=== PATIENT | female | born 1965 | race Caucasian/White ===

== ENCOUNTER 2023-04-17 14:37 | Outpatient (AMB) | payer OTHER, SELFPAY ==
--- NOTE | 2023-04-17 14:24 | MHC.PC.OV ---
Intake Visit Reasons: med follow up Medical Liaison Required: No Accompanied by: Self / Same As Patient Allergies ibuprofen [From MOTRIN] Allergy (Unknown, Verified 04/17/23 14:40) UPSET STOMACH, Nausea Medication List - Last Reconciled 04/17/23 by Arron Oliveros PA-C albuterol sulfate 90 mcg/actuation 2 puffs PO Q4-6H PRN alprazolam 0.5 mg PO BID 7 days atorvastatin 20 mg PO DAILY baclofen 10 mg PO BEDTIME gabapentin 300 mg PO BID lamotrigine 100 mg PO DAILY miscellaneous medical supply 1 ea miscellaneous DAILY 99 days omeprazole 20 mg PO DAILY sertraline (Zoloft) 200 mg PO DAILY tramadol 50 mg PO BID PRN 30 days trazodone 150 mg PO BEDTIME 30 days Tobacco use date assessed: 04/17/23 Dental Screening Dental Screen Date: 04/17/23 Did you have a dental visit in the last 12 months?: Yes Did you have a dental problem in the last 6 months where you did not have access to dental care?: No Was dental information given to patient?: Patient has dentist HPI med follow up HPI Details Patient is a 58 year-old female being evaluated today via telephone only.? Patient has a past medical history significant for generalized anxiety disorder, insomnia, moderate to severe scoliosis of thoracic lumbar spine, ART, major depressive disorder. Unfortunately was not able to get fasting labs done before today's visit. She reports she has gained a lot of weight due to being negative secondary to her thoracic and lumbar spine issue. She has severe scoliosis and has been having to use a walker for ambulatory assistance. She is interested in increasing her dose of gabapentin Obstructive sleep apnea: Is followed by the specialist and her recent CPAP settings were adjusted. She reports her headaches have returned chronic headaches --> Interval history : Patient recently seen her eye doctor was found to have papilledema.? She was referred urgently to Neurology whom diagnosed her with ?? pseudotumor cerebri and started her on acetazolamide which did not improve her symptoms. Now seeing new neurologist? 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 .. Generalized anxiety disorder, depression: Has agoraphobic tendencies.? Patient now followed by a mental health provider whom is prescribing her mental health medications. Now on lamotrigineand and topamax , zoloft.? Still uses alprazolam any very limited p.r.n. basis for anxious symptoms. She feels her mental health is fairly stable now. [facility] Medical History Brain stem lesion Gastric pain Surgical History No pertinent past surgical history Family History Father Diabetes Hypertension Mother No problems noted. Social History Housing: House Alcohol intake: never Patient Tobacco Use Status: Former Tobacco user Quit Date: 05/12/21 Tobacco use type: Cigarette e-Cigarette/Vaping Use: Never Used Second Hand Smoke Exposure: No service: No Current occupational status: disabled Cognitive needs: Yes (Pt has a walker at home.) Hearing needs: No Vision needs: Yes Questionnaire PHQ-9 Over the last 2 weeks, how often have you been bothered by any of the following problems? 1. Little interest or pleasure in doing things: more than half the days 2. Feeling down, depressed, or hopeless: more than half the days 3. Trouble falling or staying asleep, or sleeping too much: nearly every day 4. Feeling tired or having little energy: nearly every day 5. Poor appetite or overeating: nearly every day 6. Feeling bad about yourself - or that you are a failure or have let yourself or your family down: nearly every day 7. Trouble concentrating on things, such as reading the newspaper or watching television: nearly every day 8. Moving or speaking so slowly that other people could have noticed. Or the opposite - being so fidgety or restless that you have been moving around a lot more than usual: nearly every day 9. Thoughts that you would be better off or of hurting yourself in some way: several days Total score: 23 Depression Screening Interpretation: Positive Depression Screening Follow-up: Existing condition Depression Screening Done: Yes 75522 - PHQ-9 Billing: Yes Source: Developed by Cha Beckham.W. Rodriguez, Braydon Ellis and colleagues, with an educational lucy from [employer]. Thrive Questionnaire Date Thrive assessed: 04/17/23 I am a: Patient What is your living situation today?: I have a steady place to live Within the past 12 months, did the food you bought not last and you didn't have the money to get more?: Never true Within the past 12 months, did you worry whether your food would run out before you got money to buy more?: Never true Do you have trouble paying for medicines?: No Do you have trouble getting transportation to medical appointments?: No Do you have trouble paying your heating and electricity bill?: No Do you have trouble taking care of your child, family member or friend?: No Do you have trouble with day-to-day activities such as bathing, preparing meals, shopping, managing finances, etc.?: No Are you currently unemployed and looking for a job?: No Are you interested in more education?: No Please select the resources that you would like help with: None Currently or been in a relationship where the following occur: no concerns reported THRIVE Score: 0 AUDIT C Alcohol Use Questionnaire (AUDIT-C) 1. How often do you have a drink containing alcohol?: Never 3. How often do you have six or more drinks on one occasion?: Never Total Score: 0 VALERI-7 AMB Questionnaire VALERI-7 Date VALERI - 7 assessed: 04/17/23 Feeling nervous, anxious, or on edge: 3 = Nearly every day Not being able to stop or control worryin = Nearly every day Worrying too much about different things: 3 = Nearly every day Trouble relaxin = Nearly every day Being so restless that it is hard to sit still: 2 = More than half the days Becoming easily annoyed or irritable: 2 = More than half the days Feeling afraid as if something awful might happen: 2 = More than half the days Total VALERI-7 score (0-4 normal; 5-9 mild; 10-14 moderate; 15-21 severe): 18 Source: Developed by Drs. Jose Alejandro Mosqueda, Cha Frias, Braydon Ellis and colleagues, with an educational lucy from [employer]. VALERI-7 Assessment Billing VALERI-7 Assessment Tool: VALERI-7 Assessment 69817 Review of Systems Const Denies headache(s) Eyes Denies loss of vision ENT Denies vertigo, Denies dizziness, Denies headache(s) and Denies sore throat Card Denies chest pain, Denies leg edema and Denies lightheadedness Resp Denies cough, Denies hemoptysis and Denies wheezing GI Denies abdominal pain, Denies melena, Denies constipation, Denies diarrhea and Denies vomiting Denies urinary frequency, Denies dysuria and Denies urinary urgency Musc Reports back pain, Denies arthralgias, Denies joint swelling, Denies numbness and Denies tingling Neuro Denies behavioral changes, Denies vertigo, Denies dizziness, Denies headache(s), Denies loss of vision, Denies memory loss, Denies numbness and Denies tingling Psych Denies anxiety, Denies behavioral changes, Denies depression, Denies memory loss and Denies panic attacks Alcon/Lymph Denies easy bleeding and Denies easy bruising Aller/Immun Denies wheezing Physical exam (Primary Care) Tobacco/Smoking Status: Tobacco use Status Tobacco use date assessed 04/17/23 04/17/23 14:36 Patient Tobacco Use Status Former Tobacco user 04/17/23 14:24 Tobacco use type Cigarette 04/17/23 14:24 e-Cigarette/Vaping Use Never Used 04/17/23 14:24 PHQ-9: PHQ-9 Score PHQ-9: Total score 23 04/17/23 14:36 Depression Screening Interpretation: Positive Depression Screening Follow-up: Existing condition Thrive Assessment: Date of Thrive Assessment Date Thrive assessed 04/17/23 04/17/23 14:36 Currently or been in a relationship where the following occur: no concerns reported Telehealth Telehealth Location of provider rendering services: practice address Location of patient: address on file Patient Identification confirmed using: Name, : Yes Telehealth method: voice only Patient verbally consented to treatment: Yes Patient verbally consented to billing insurance company: Yes Patient informed of any privacy concerns related to visit: Yes Minutes spent on Phone/Video with Pt.: 11 Assessment and Plan Assessment & Plan (1) VALERI (generalized anxiety disorder): Code(s): F41.1 - Generalized anxiety disorder Plan: Patient is followed by mental health therapist at this time. She continues with the use alprazolam on a p.r.n. basis. Has been started on mood stabilizer as well for possible mood disorder. (2) Scoliosis: Code(s): M41.9 - Scoliosis, unspecified Qualifiers: Scoliosis type: idiopathic Idiopathic scoliosis type: other Spinal region: thoracic Qualified Code(s): M41.24 - Other idiopathic scoliosis, thoracic region Plan: Patient does have fairly advanced scoliosis to which she uses tramadol, lidocaine patch and acetaminophen for. As per HPI her back pain has become more debilitating. She reports she has been having to use a walker for ambulatory assistance. (3) Sleep apnea: Code(s): G47.30 - Sleep apnea, unspecified Qualifiers: Sleep apnea type: obstructive Qualified Code(s): G47.33 - Obstructive sleep apnea (adult) (pediatric) Plan: Has been started on CPAP machine and reports her headaches have drastically improved. 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 Most likely reason for papilledema was her uncontrolled obstructive sleep apnea. (5) HLD (hyperlipidemia): Code(s): E78.5 - Hyperlipidemia, unspecified Qualifiers: Hyperlipidemia type: pure hypertriglyceridemia Qualified Code(s): E78.1 - Pure hyperglyceridemia Plan: Patient continues on statin therapy. Has yet to get her fasting labs done for several years due to her extreme anxiety. She promises to do her labs in the next few weeks. Goal LDL to be below 130 Medications: New gabapentin 600 mg PO BID 30 days 60 tabs 3RF M41.9 - Scoliosis, unspecified Refilled atorvastatin 20 mg PO DAILY 90 tabs 1RF E78.1 - Pure hyperglyceridemia tramadol 50 mg PO BID 30 days PRN 60 tabs 3RF pain M41.24 - Other idiopathic scoliosis, thoracic region albuterol sulfate 90 mcg/actuation 2 puffs PO Q4-6H PRN 8.5 ea 3RF for wheezing Discontinued gabapentin Discontinued Reason: Doctor's Order 300 mg PO BID 60 caps 6RF Coding Level of Care Code Tele Est Pt Level 4 (22255) Diagnoses VALERI (generalized anxiety disorder) F41.1 Other idiopathic scoliosis, thoracic region M41.24 Scoliosis type: idiopathic Idiopathic scoliosis type: other Spinal region: thoracic Obstructive sleep apnea syndrome G47.33 Sleep apnea type: obstructive Brain stem lesion G93.9 Pure hypertriglyceridemia E78.1 Hyperlipidemia type: pure hypertriglyceridemia Additional Codes VALERI-7 Assessment Billing - VALERI-7 Assessment Tool: VALERI-7 Assessment 95395 ([id number])
== END 2023-04-17 15:47 | disposition home or self-care (01) ==
LOC: HO.HMGH 14:37
PROVIDERS: PCP Physician Assistant; Visit Provider Physician Assistant
DX: M41.24 Other idiopathic scoliosis, thoracic region (principal); G47.33 Obstructive sleep apnea (adult) (pediatric); G93.9 Disorder of brain, unspecified; E78.1 Pure hyperglyceridemia
CPT/HCPCS: 99442

== ENCOUNTER 2023-08-14 11:44 | Outpatient (REF) | payer OTHER, SELFPAY ==
--- NOTE | ~2023-08-14 | XR_ITS ---
EXAMINATION: XR THORACIC SPINE CLINICAL INFORMATION: Idiopathic thoracic scoliosis. COMPARISON: Thoracic spine radiographs dated 11/20/2018. TECHNIQUE: Frontal, lateral and swimmer's views of the thoracic spine were obtained. FINDINGS: There is bony mineralization. There are stable very mild T6 and T7 upper endplate compression fractures. There is a mild thoracolumbar levoscoliosis. At C5-C6, there is moderate disc space narrowing. There is disc space narrowing extending from T6-T7 through T8-T9. The remaining disc spaces are relatively well-maintained. No acute fracture or spondylolisthesis is seen. There is anterior endplate arthropathy, most pronounced at T8-T9. The posterior elements are intact. The paravertebral soft tissues are unremarkable. XR/XR lumbar spine 2-3V IMPRESSION: 1. There are stable very mild T6 and T7 upper endplate compression fractures. 2. There is a mild thoracolumbar levoscoliosis. 3. There is moderate degenerative disc disease at C5-C6 and extending from T6-T7 through T8-T9. EXAMINATION: XR LUMBOSACRAL SPINE CLINICAL INFORMATION: Idiopathic thoracic scoliosis. COMPARISON: Radiographs dated 11/20/2018. TECHNIQUE: AP and lateral views of the lumbar spine and lateral view of the lumbosacral junction. FINDINGS: There is bony demineralization. There is a moderate thoracolumbar levoscoliosis. Vertebral body heights are normal. The lumbar disc spaces are well-maintained. No acute fracture or spondylolisthesis is seen. There is multi-level anterior endplate arthropathy. The posterior elements are intact. The paravertebral soft tissues are unremarkable. There are pelvic phleboliths. There are right upper quadrant surgical clips. IMPRESSION: 1. There is a moderate thoracolumbar levoscoliosis. 2. The lumbar disc spaces are well-maintained. 3. There is multi-level mild lumbar endplate arthropathy.
--- NOTE | ~2023-08-14 | XR_ITS ---
EXAMINATION: XR THORACIC SPINE CLINICAL INFORMATION: Idiopathic thoracic scoliosis. COMPARISON: Thoracic spine radiographs dated 11/20/2018. TECHNIQUE: Frontal, lateral and swimmer's views of the thoracic spine were obtained. FINDINGS: There is bony mineralization. There are stable very mild T6 and T7 upper endplate compression fractures. There is a mild thoracolumbar levoscoliosis. At C5-C6, there is moderate disc space narrowing. There is disc space narrowing extending from T6-T7 through T8-T9. The remaining disc spaces are relatively well-maintained. No acute fracture or spondylolisthesis is seen. There is anterior endplate arthropathy, most pronounced at T8-T9. The posterior elements are intact. The paravertebral soft tissues are unremarkable. XR/XR thoracic spine 3V IMPRESSION: 1. There are stable very mild T6 and T7 upper endplate compression fractures. 2. There is a mild thoracolumbar levoscoliosis. 3. There is moderate degenerative disc disease at C5-C6 and extending from T6-T7 through T8-T9. EXAMINATION: XR LUMBOSACRAL SPINE CLINICAL INFORMATION: Idiopathic thoracic scoliosis. COMPARISON: Radiographs dated 11/20/2018. TECHNIQUE: AP and lateral views of the lumbar spine and lateral view of the lumbosacral junction. FINDINGS: There is bony demineralization. There is a moderate thoracolumbar levoscoliosis. Vertebral body heights are normal. The lumbar disc spaces are well-maintained. No acute fracture or spondylolisthesis is seen. There is multi-level anterior endplate arthropathy. The posterior elements are intact. The paravertebral soft tissues are unremarkable. There are pelvic phleboliths. There are right upper quadrant surgical clips. IMPRESSION: 1. There is a moderate thoracolumbar levoscoliosis. 2. The lumbar disc spaces are well-maintained. 3. There is multi-level mild lumbar endplate arthropathy.
--- NOTE | ~2023-08-14 | XR_ITS ---
EXAMINATION: XR HIP, RIGHT CLINICAL INFORMATION: Right hip pain. COMPARISON: None available. TECHNIQUE: AP and frog-leg lateral views of the right hip are submitted, together with a frontal view of the pelvis. FINDINGS: No fracture. Alignment is anatomic. Hip joint space is maintained. Soft tissues are unremarkable. There are multiple pelvic phleboliths. XR/XR hip RT min 2V IMPRESSION: Normal right hip.
[2023-08-14 12:40] LABS: Hematocrit 44.7 % (37.0-47.0); Hemoglobin 14.2 g/dl (12.0-16.0); Mean Corpuscular HGB Conc 31.8 g/dl (31.0-35.0); Mean Corpuscular Hemoglobin 30.5 pg (27.0-33.0); Mean Corpuscular Volume 95.9 fL (80.0-98.0); Mean Platelet Volume 9.7 fL (9.4-12.3); Platelet Count 366 X10*3/uL (160-400); Red Blood Count 4.66 X10*6/uL (4.20-5.50); Red Cell Distribution Width 13.2 % (11.0-16.0); White Blood Count 9.2 X10*3/uL (4.8-10.8)
[2023-08-14 13:40] LABS: Alanine Aminotransferase 21 U/L (0-31); Albumin Level 4.1 g/dL (3.5-5.0); Alkaline Phosphatase 79 U/L (39-117); Anion Gap 14 (12-20); Aspartate Amino Transferase 21 U/L (5-31); Bilirubin Total 0.3 mg/dL (0.0-1.0); Blood Urea Nitrogen 10 mg/dL (9-16); Calcium 9.3 mg/dL (8.4-10.2); Carbon Dioxide 30 mmol/L (22-29); Chloride 106 mmol/L (96-108); Cholesterol 143 mg/dL (<200); Estimated Glomerular Filt Rate > 60; Glucose Fasting 131 mg/dL (60-99); HDL Cholesterol 54 mg/dL (>40); LDL Cholesterol Calculated 68 mg/dL (<100); Potassium 4.4 mmol/L (3.3-5.1); Sodium 146 mmol/L (135-145); Total Protein 6.9 g/dL (6.5-8.0); Triglycerides 107 mg/dL (<150)
== END 2023-08-14 11:45 | disposition home or self-care (01) ==
LOC: HO.XRAY 11:44
PROVIDERS: PCP Physician Assistant; Visit Provider Physician Assistant
DX: K21.9 Gastro-esophageal reflux disease without esophagitis (principal); E78.1 Pure hyperglyceridemia; M25.551 Pain in right hip; M41.24 Other idiopathic scoliosis, thoracic region; M51.16 Intervertebral disc disorders with radiculopathy, lumbar region
CPT/HCPCS: 36415; 72072; 72100; 73502; 80053; 80061; 85027

== ENCOUNTER 2023-08-21 10:27 | Outpatient (AMB) | payer OTHER, SELFPAY ==
[2023-08-21 10:29] VITALS: BP 100/64; PULSE 88; O2SAT 95; BMI 41.4
--- NOTE | 2023-08-21 10:29 | A.OFFPC_ITS ---
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 Accompanied by: Self / Same As Patient Allergies ibuprofen [From MOTRIN] Allergy (Unknown, Verified 08/21/23 10:38) UPSET STOMACH, Nausea Medication List - Last Reconciled 08/21/23 by Arron Oliveros PA-C albuterol sulfate 90 mcg/actuation 2 puffs PO Q4-6H PRN alprazolam 0.5 mg PO BID 7 days atorvastatin 20 mg PO DAILY baclofen 10 mg PO BEDTIME fluoxetine mg PO gabapentin 600 mg PO BID 30 days lamotrigine 100 mg PO DAILY miscellaneous medical supply 1 ea miscellaneous DAILY 99 days omeprazole 20 mg PO DAILY tramadol 50 mg PO BID PRN 30 days trazodone 150 mg PO BEDTIME 30 days Tobacco use date assessed: 04/17/23 Dental Screening Dental Screen Date: 04/17/23 HPI U/S-CT request HPI Details Patient is a 58 year-old female here today for follow-up visit. Patient has a past medical history significant for generalized anxiety disorder, insomnia, moderate to severe scoliosis of thoracic lumbar spine, ART, major depressive disorder. Concern--> has been having right groin pain over the last several weeks. Did go get an x-ray of her right hip that did not show any arthritis. She reports her hip is a lot of pain when going from sitting to standing and walking. She can not recall any notable trauma to her hip or pelvis. She has not noted any palpable lumps in the inguinal region though reports swollen. Thoracic scoliosis: She reports she has gained a lot of weight due to being negative secondary to her thoracic and lumbar spine issue. She has severe scoliosis and has been having to use a walker for ambulatory assistance. She is interested in increasing her dose of gabapentin --> 800 mg b.i.d. still does take tramadol on an as needed basis Recent thoracic x-ray showing-->There are stable very mild T6 and T7 upper endplate compression fractures. 2. There is a mild thoracolumbar levosco liosis. 3. There is moderate degenerative disc d isease at C5-C6 and extending from T6-T7 through T8-T9 Obstructive sleep apnea: Is followed by the specialist and her recent CPAP settings were adjusted. She reports her headaches have returned . . Obesity: Has gained a significant am ount of weight since last office visit. She does admit to dietary indiscretion( eating 2 pt iceCream per day...) chronic headaches --> Interval history : Patient recently seen her eye doctor was found to have papilledema.? She was referred urgently to Neurology whom diagnosed her with ?? pseudotumor cerebri and started her on acetazolamide which did not improve her symptoms. Now seeing new neurologist? 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 .. Generalized anxiety disorder, depression: Has agoraphobic tendencies.? Patient now followed by a mental health provider whom is prescribing her mental health medications. Now on lamotrigineand and topamax , zoloft.? Still uses alprazolam any very limited p.r.n. basis for anxious symptoms. She feels her mental health is fairly stable now. . [facility] Medical History Brain stem lesion Gastric pain Surgical History No pertinent past surgical history Family History Father Diabetes Hypertension Mother No problems noted. Social History Housing: House Alcohol intake: never Patient Tobacco Use Status: Former Tobacco user Tobacco use type: Cigarette e-Cigarette/Vaping Use: Never Used Second Hand Smoke Exposure: No service: No Current occupational status: disabled Cognitive needs: Yes (Pt has a walker at home.) Hearing needs: No Vision needs: Yes Questionnaire Thrive Questionnaire Date Thrive assessed: 04/17/23 VALERI-7 AMB Questionnaire VALERI-7 Date VALERI - 7 assessed: 04/17/23 Source: Developed by Drs. Jose Alejandro Mosqueda, Cha Frias, Braydon Ellis and colleagues, with an educational lucy from [employer]. Review of Systems Const Denies headache(s) Eyes Denies loss of vision ENT Denies vertigo, Denies dizziness, Denies headache(s) and Denies sore throat Card Denies chest pain, Denies leg edema and Denies lightheadedness Resp Denies cough, Denies hemoptysis and Denies wheezing GI Denies abdominal pain, Denies melena, Denies constipation, Denies diarrhea and Denies vomiting Denies urinary frequency, Denies dysuria and Denies urinary urgency Musc Denies arthralgias, Denies joint swelling, Denies numbness and Denies tingling Neuro Denies Abnormal speech present, Denies behavioral changes, Denies vertigo, Denies dizziness, Denies headache(s), Denies loss of vision, Denies memory loss, Denies numbness and Denies tingling Psych Denies anxiety, Denies behavioral changes, Denies depression, Denies memory loss and Denies panic attacks Alcon/Lymph Denies easy bleeding and Denies easy bruising Aller/Immun Denies wheezing Physical exam (Primary Care) Vital Signs: Last Vital Signs Pulse 88 08/21/23 10:29 BP 100/64 08/21/23 10:29 Pulse Ox 95 08/21/23 10:29 Oxygen Delivery Method Room Air 08/21/23 10:29 BMI result Body Mass Index 41.4 Tobacco/Smoking Status: Tobacco use Status Tobacco use date assessed 04/17/23 08/21/23 10:36 Patient Tobacco Use Status Former Tobacco user 08/21/23 10:36 Tobacco use type Cigarette 08/21/23 10:36 e-Cigarette/Vaping Use Never Used 08/21/23 10:36 Thrive Assessment: Date of Thrive Assessment Date Thrive assessed 04/17/23 08/21/23 10:36 Const General: healthy appearing, no acute distress, alert and awake Nutritional Appearance: well nourished Orientation/consciousness: oriented to person, oriented to place and oriented to time HENMT Ears: TM's normal bilaterally General nose exam: Normal nasal mucous membranes and turbinates present Eyes Conjunctivae: conjunctivae normal Sclerae: sclerae normal Pupils: Equal, round and reactive pupils present Neck Neck: Yes no lymphadenopathy and Yes no JVD Thyroid: Thyroid normal Carotids: no bruits Resp Effort & Inspection: normal respiratory effort and not tachypneic Auscultation: no crackles, no rales, no rhonchi and no wheezes Cardio Rate: regular rate Rhythm: regular rhythm Heart sounds: no murmurs and normal S1 and S2 GI Palpation (GI): Soft to palpation, nontender, no hepatomegaly and no splenomegaly Auscultation: normal bowel sounds Skin General skin exam: no rashes or lesions noted and dry skin Neuro General: oriented to person, oriented to place and oriented to time Cranial nerves: Yes Equal, round and reactive pupils present Speech: No Abnormal speech present Gait exam (Neuro): Normal gait present Motor exam (neuro): no tremor noted Extrem Right upper extremity: full ROM Left upper extremity: full ROM Right lower extremity: full ROM; no edema Left lower extremity: full ROM; no edema Psych Mental Status: mental status grossly normal Speech and movement: Normal speech and movement present Affect: normal affect Attitude: cooperative Thought process: Normal thought process present Assessment and Plan Assessment & Plan (1) Scoliosis: Code(s): M41.9 - Scoliosis, unspecified Qualifiers: Idiopathic scoliosis type: other Scoliosis type: idiopathic Spinal region: thoracic Qualified Code(s): M41.24 - Other idiopathic scoliosis, thoracic region Plan: Has pretty significant scoliosis in the thoracic lumbar region. She is interested in seeing pain management for pain reduction modality. (2) Thoracic radiculitis: Code(s): M54.14 - Radiculopathy, thoracic region Plan: As above (3) Right groin pain: Code(s): R10.31 - Right lower quadrant pain Plan: Has been having right groin pain over the last several weeks. She has not noticed any lump. Did get right hip x-ray that did not show any arthritis. Will try for CT of abdomen pelvis to evaluate for right inguinal hernia (4) Right inguinal hernia: Code(s): K40.90 - Unilateral inguinal hernia, without obstruction or gangrene, not specified as recurrent (5) Impaired fasting blood sugar: Code(s): R73.01 - Impaired fasting glucose Plan: Most recent fasting blood sugar 131. Today's A1c of 5.5. She will continue working on reducing her carbohydrates and being more physically active to lose weight. (6) VALERI (generalized anxiety disorder): Code(s): F41.1 - Generalized anxiety disorder Plan: Patient is followed by mental health therapist at this time. She continues with the use alprazolam on a p.r.n. basis. Has been started on mood stabilizer as well for possible mood disorder. (7) Sleep apnea: Code(s): G47.30 - Sleep apnea, unspecified Qualifiers: Sleep apnea type: obstructive Qualified Code(s): G47.33 - Obstructive sleep apnea (adult) (pediatric) Plan: Has been started on CPAP machine and reports her headaches have drastically improved. (8) HLD (hyperlipidemia): Code(s): E78.5 - Hyperlipidemia, unspecified Qualifiers: Hyperlipidemia type: pure hypertriglyceridemia Qualified Code(s): E78.1 - Pure hyperglyceridemia Plan: Patient continues on statin therapy. Most recent fasting panel showing excellent control over total cholesterol and LDL. Goal LDL to remain below 130 (9) MDD (major depressive disorder), recurrent episode: Code(s): F33.9 - Major depressive disorder, recurrent, unspecified Qualifiers: Major depression episode severity: moderate Qualified Code(s): F33.1 - Major depressive disorder, recurrent, moderate Plan: Patient continues to suffer with some depression. She speaks with a mental health therapist and a mental health med provider. Continues on trazodone and fluoxetine with decent affect. Otherwise denies any SI or HI.. Will continue to follow her mental health professionals. Orders: Orders AMB Hemoglobin A1c 08/21/23 R73.01 - Impaired fasting glucose Lipid Panel 6 Months E78.1 - Pure hyperglyceridemia Comprehensive [place]. Panel Fast 6 Months R73.01 - Impaired fasting glucose Hemoglobin A1c 6 Months R73.01 - Impaired fasting glucose CT abdomen pelvis w IV con 08/21/23 K40.90 - Unilateral inguinal hernia, without obstruction or gangrene, not specified as recurrent Complete Blood Count no Diff 6 Months K21.9 - Gastro-esophageal reflux disease without esophagitis Referrals Pain Management Referral M41.24 - Other idiopathic scoliosis, thoracic region, M54.14 - Radiculopathy, thoracic region Medications: New gabapentin 800 mg PO BID 30 days 60 tabs 3RF M41.24 - Other idiopathic scoliosis, thoracic region Refilled omeprazole 20 mg PO DAILY 90 caps 1RF K21.9 - Gastro-esophageal reflux disease without esophagitis Discontinued gabapentin Discontinued Reason: Doctor's Order 600 mg PO BID 30 days 60 tabs 3RF M41.9 - Scoliosis, unspecified Patient Instructions: Goal: Reduce her weight over the 6 months down below 200 lb, goal LDL to remain below 130 Barriers: Adherence to physical activity and healthy eating habits Coding Level of Care Code Est Pt Level 4 (71973) Complex EM visit Add On G2211 Diagnoses Other idiopathic scoliosis, thoracic region M41.24 Idiopathic scoliosis type: other Scoliosis type: idiopathic Spinal region: thoracic Thoracic radiculitis M54.14 Right groin pain R10.31 Right inguinal hernia K40.90 Impaired fasting blood sugar R73.01 VALERI (generalized anxiety disorder) F41.1 Obstructive sleep apnea syndrome G47.33 Sleep apnea type: obstructive Pure hypertriglyceridemia E78.1 Hyperlipidemia type: pure hypertriglyceridemia Moderate episode of recurrent major depressive disorder F33.1 Major depression episode severity: moderate
== END 2023-08-21 12:39 | disposition home or self-care (01) ==
PROVIDERS: PCP Physician Assistant; Visit Provider Physician Assistant
DX: M41.24 Other idiopathic scoliosis, thoracic region (principal); F33.1 Major depressive disorder, recurrent, moderate; M54.14 Radiculopathy, thoracic region; R73.01 Impaired fasting glucose; R10.31 Right lower quadrant pain; K40.90 Unilateral inguinal hernia, without obstruction or gangrene, not specified as recurrent; F41.1 Generalized anxiety disorder; G47.33 Obstructive sleep apnea (adult) (pediatric); E78.1 Pure hyperglyceridemia
CPT/HCPCS: 99214; G2211

== ENCOUNTER 2023-10-05 13:50 | Outpatient (REF) | payer OTHER, SELFPAY ==
--- NOTE | ~2023-10-05 | CT_ITS ---
EXAMINATION: CT ABDOMEN AND PELVIS WITH CONTRAST CLINICAL INFORMATION: Unilateral inguinal hernia, without obstruction or gangrene. COMPARISON: CT abdomen and pelvis dated 03/01/2017. TECHNIQUE: Multidetector volumetric images were obtained from the superior aspect of the liver through the pubic symphysis following administration 85 mL of Omnipaque 350 intravenous contrast. Sagittal and coronal reformatted images were obtained on the technologist's workstation. Oral contrast: No This CT examination was performed using dose optimization techniques as appropriate, variously including the following: *Automated exposure control *Adjustment of mA and/or kV according to patient size (this includes techniques or standardized protocols for targeted exams where dose is matched to indication/reason for exam; i.e. extremities or head) *Use of iterative reconstruction technique DLP: 754 mGy-cm FINDINGS: LUNG BASES: The visualized lung bases are unremarkable. LIVER, GALLBLADDER, AND BILIARY TREE: The liver is normal in size, shape, and attenuation. No focal hepatic lesion or biliary ductal dilatation is present. The gallbladder is surgically absent. PANCREAS: Unremarkable. SPLEEN: Unremarkable. ADRENAL GLANDS: Unremarkable. KIDNEYS AND URETERS: The kidneys are normal in size, shape, and attenuation. No hydronephrosis, hydroureter, or calculi seen. No perinephric stranding. BLADDER: Unremarkable. GASTROINTESTINAL TRACT: There is mild diverticulosis, without acute diverticulitis. No bowel obstruction, free intraperitoneal air or abscess is seen. There is no focal bowel wall thickening. The vermiform appendix appears normal. ABDOMINAL WALL: There is a very small fat-containing umbilical hernia. LYMPH NODES: Normal. VASCULAR: Unremarkable. PELVIC VISCERA: The uterus and adnexa are unremarkable. OSSEOUS STRUCTURES: There is multi-level thoracolumbar endplate arthropathy and Schmorl's node formation. No acute or aggressive osseous finding is noted. CT/CT abdomen pelvis w IV con IMPRESSION: 1. A small fat-containing umbilical hernia is seen. No inguinal hernia defect is appreciated. 2. The gallbladder is surgically absent. 3. There is mild diverticulosis, without acute diverticulitis. 4. There are degenerative changes of the spine. No acute or aggressive osseous finding is seen. Fleischner guidelines were followed.
[2023-10-05 14:22] LABS: Alanine Aminotransferase 17 U/L (0-31); Albumin Level 4.2 g/dL (3.5-5.0); Alkaline Phosphatase 80 U/L (39-117); Anion Gap 15 (12-20); Aspartate Amino Transferase 16 U/L (5-31); Bilirubin Total 0.3 mg/dL (0.0-1.0); Blood Urea Nitrogen 8 mg/dL (9-16); Carbon Dioxide 24 mmol/L (22-29); Chloride 106 mmol/L (96-108); Estimated Glomerular Filt Rate 57; Glucose Fasting 90 mg/dL (60-99); Potassium 4.3 mmol/L (3.3-5.1); Sodium 141 mmol/L (135-145); Total Protein 6.8 g/dL (6.5-8.0)
[2023-10-05] MEDS: iohexoL 350 MG/ML 100 ML INFUS..BTL IV (15:15)
== END 2023-10-05 13:51 | disposition home or self-care (01) ==
LOC: HO.CT 13:50
PROVIDERS: PCP Physician Assistant; Visit Provider Physician Assistant
DX: K40.90 Unilateral inguinal hernia, without obstruction or gangrene, not specified as recurrent (principal); R73.01 Impaired fasting glucose
CPT/HCPCS: 36415; 74177; 80053; Q9967

== ENCOUNTER 2023-10-12 13:17 | Outpatient (AMB) | payer OTHER, SELFPAY ==
--- NOTE | 2023-10-12 13:16 | MHC.PC.OV ---
Intake Visit Reasons: Follow up CT Scan/Discuss back pain Bread Supervisor Required: No Information Interpreted: non-clinical & clinical Manufacturing Tech: Not Required per policy Accompanied by: Self / Same As Patient Allergies ibuprofen [From MOTRIN] Allergy (Unknown, Verified 10/12/23 13:19) UPSET STOMACH, Nausea Medication List - Last Reconciled 10/12/23 by Arron Oliveros PA-C albuterol sulfate 90 mcg/actuation 2 puffs PO Q4-6H PRN alprazolam 0.5 mg PO BID 7 days atorvastatin 20 mg PO DAILY baclofen 10 mg PO BEDTIME fluoxetine mg PO gabapentin 800 mg PO BID 30 days lamotrigine 100 mg PO DAILY miscellaneous medical supply 1 ea miscellaneous DAILY 99 days omeprazole 20 mg PO DAILY tramadol 50 mg PO BID PRN 30 days trazodone 150 mg PO BEDTIME 30 days Tobacco use date assessed: 04/17/23 Dental Screening Dental Screen Date: 04/17/[address] Scan/Discuss back pain HPI Details Patient is a 58 year-old female being evaluated today via telephone.. Patient has a past medical history significant for generalized anxiety disorder, insomnia, moderate to severe scoliosis of thoracic lumbar spine, ART, major depressive disorder. Concern--> has been having right groin pain over the last several weeks. Did go get an x-ray of her right hip that did not show any arthritis. She reports her hip is a lot of pain when going from sitting to standing and walking. CT abd pelv showing a fat containing umbilical hernia otherwise no other explanation for right groin pain. We did review her thoracic and lumbar spine x-rays that did show an endplate fracture in the thoracic spine and some degenerative disc disease. She will be following with pain management about reducing her pain. She continues to have difficulties with ambulation due to her low back pain. [facility] Medical History Brain stem lesion Gastric pain Surgical History No pertinent past surgical history Family History Father Diabetes Hypertension Mother No problems noted. Social History Housing: House Alcohol intake: never Patient Tobacco Use Status: Former Tobacco user Tobacco use type: Cigarette e-Cigarette/Vaping Use: Never Used Second Hand Smoke Exposure: No service: No Current occupational status: disabled Cognitive needs: Yes (Pt has a walker at home.) Hearing needs: No Vision needs: Yes Questionnaire Thrive Questionnaire Date Thrive assessed: 04/17/23 VALERI-7 AMB Questionnaire VALERI-7 Date VALERI - 7 assessed: 04/17/23 Source: Developed by Drs. Jose Alejandro Mosqueda, Cha Frias, Braydon Ellis and colleagues, with an educational lucy from [employer]. Review of Systems Const Denies headache(s) Eyes Denies loss of vision ENT Denies vertigo, Denies dizziness, Denies headache(s) and Denies sore throat Card Denies chest pain, Denies leg edema and Denies lightheadedness Resp Denies cough, Denies hemoptysis and Denies wheezing GI Denies abdominal pain, Denies melena, Denies constipation, Denies diarrhea and Denies vomiting Denies urinary frequency, Denies dysuria and Denies urinary urgency Musc Reports abnormal gait, Reports back pain, Denies arthralgias, Denies joint swelling, Denies numbness and Denies tingling Neuro Reports abnormal gait, Denies behavioral changes, Denies vertigo, Denies dizziness, Denies headache(s), Denies loss of vision, Denies memory loss, Denies numbness and Denies tingling Psych Denies anxiety, Denies behavioral changes, Denies depression, Denies memory loss and Denies panic attacks Alcon/Lymph Denies easy bleeding and Denies easy bruising Aller/Immun Denies wheezing Physical exam (Primary Care) Tobacco/Smoking Status: Tobacco use Status Tobacco use date assessed 04/17/23 10/12/23 13:16 Patient Tobacco Use Status Former Tobacco user 10/12/23 13:16 Tobacco use type Cigarette 10/12/23 13:16 e-Cigarette/Vaping Use Never Used 10/12/23 13:16 Thrive Assessment: Date of Thrive Assessment Date Thrive assessed 04/17/23 10/12/23 13:16 Telehealth Telehealth Telehealth Platform: Telephone Location of provider rendering services: practice address Location of patient: address on file Patient Identification confirmed using: Name, : Yes Telehealth method: voice only Patient verbally consented to treatment: Yes Patient verbally consented to billing insurance company: Yes Patient informed of any privacy concerns related to visit: Yes Minutes spent on Phone/Video with Pt.: 11 Assessment and Plan Assessment & Plan (1) Thoracic radiculitis: Code(s): M54.14 - Radiculopathy, thoracic region Plan: As per HPI patient does have moderate thoracic lumbar scoliosis. Also does have some degenerative disc disease in lumbar and cervical spine. Did suffer a fall in July of 2023 which resulted in endplate fracture of the thoracic spine region. She continues to have difficulties with ambulation and chronic pain that she has been managing with gabapentin and p.r.n. tramadol. She is requesting a increased dose of gabapentin to 800 t.i.d.. (2) Scoliosis: Code(s): M41.9 - Scoliosis, unspecified Qualifiers: Idiopathic scoliosis type: other Scoliosis type: idiopathic Spinal region: thoracic Qualified Code(s): M41.24 - Other idiopathic scoliosis, thoracic region Plan: As per HPI Medications: Changed From gabapentin 800 mg PO BID 30 days 60 tabs 3RF M41.24 - Other idiopathic scoliosis, thoracic region To gabapentin 800 mg PO TID 90 tabs 3RF 30 days M41.24 - Other idiopathic scoliosis, thoracic region Coding Level of Care Code Tele Est Pt Level 4 (00879) Diagnoses Thoracic radiculitis M54.14 Other idiopathic scoliosis, thoracic region M41.24 Idiopathic scoliosis type: other Scoliosis type: idiopathic Spinal region: thoracic
== END 2023-10-12 17:45 | disposition home or self-care (01) ==
LOC: HO.HMGH 13:17
PROVIDERS: PCP Physician Assistant; Visit Provider Physician Assistant
DX: M54.14 Radiculopathy, thoracic region (principal); M41.24 Other idiopathic scoliosis, thoracic region
CPT/HCPCS: 99441

== ENCOUNTER 2024-05-07 12:51 | Outpatient (AMB) | payer OTHER, SELFPAY ==
--- NOTE | 2024-05-07 12:53 | MHC.PC.OV ---
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 Accompanied by: Self / Same As Patient Allergies ibuprofen [From MOTRIN] Allergy (Unknown, Verified 05/07/24 13:13) UPSET STOMACH, Nausea Medication List - Last Reconciled 05/07/24 by Arron Oliveros PA-C albuterol sulfate 90 mcg/actuation 2 puffs PO Q4-6H PRN alprazolam 0.5 mg PO BID 7 days atomoxetine 60 mg PO QAM atorvastatin 20 mg PO DAILY baclofen 10 mg PO BEDTIME gabapentin 800 mg PO TID 30 days lamotrigine 200 mg PO DAILY miscellaneous medical supply 1 ea miscellaneous DAILY 99 days omeprazole 20 mg PO DAILY sertraline 100 mg PO DAILY tirzepatide (weight loss) (Zepbound) 10 mg (0.5 mL) subcut QWEEK 4 weeks tramadol 50 mg PO BID PRN 30 days trazodone 150 mg PO BEDTIME 30 days Tobacco use date assessed: 05/07/24 Dental Screening Dental Screen Date: 05/07/24 Did you have a dental visit in the last 12 months?: Yes Did you have a dental problem in the last 6 months where you did not have access to dental care?: No Was dental information given to patient?: Patient has dentist HPI Weight check/Zepbound PA HPI Details Patient is a 59 year-old female here today for a follow-up visit. Patient has a past medical history significant for obesity, generalized anxiety disorder, insomnia, moderate to severe scoliosis of thoracic lumbar spine, ART, major depressive disorder. Class 2 Obesity: Patient continues on Zepbound in his has been able to lose more than 5% of body weight. Her starting BMI was at 41 and today's BMI at 35.4. She has establish new eating habits and has been much more so physically active. She reports she has now increased self confidence , decreased depression and decreased mid back pain secondary to her scoliotic spine.. Her concern is centered around the effectiveness of the medication in maintaining her progress and preventing a return to depressive states. In terms of weight loss, the patient has achieved a reduction of approximately 30-35 pounds through the medication. Concerning obstructive sleep apnea, the patient observes an improvement with CPAP therapy, noting a reduction in a specific number on the machine that she does not fully understand. [facility] Medical History Brain stem lesion Gastric pain Surgical History No pertinent past surgical history Family History Father Diabetes Hypertension Mother No problems noted. Social History Housing: House Alcohol intake: never Patient Tobacco Use Status: Former Tobacco user Tobacco use type: Cigarette e-Cigarette/Vaping Use: Never Used Second Hand Smoke Exposure: No service: No Current occupational status: disabled Cognitive needs: Yes (Pt has a walker at home.) Hearing needs: No Vision needs: Yes Questionnaire PHQ-9 Over the last 2 weeks, how often have you been bothered by any of the following problems? 1. Little interest or pleasure in doing things: not at all 2. Feeling down, depressed, or hopeless: not at all 3. Trouble falling or staying asleep, or sleeping too much: not at all 4. Feeling tired or having little energy: not at all 5. Poor appetite or overeating: not at all 6. Feeling bad about yourself - or that you are a failure or have let yourself or your family down: not at all 7. Trouble concentrating on things, such as reading the newspaper or watching television: not at all 8. Moving or speaking so slowly that other people could have noticed. Or the opposite - being so fidgety or restless that you have been moving around a lot more than usual: not at all 9. Thoughts that you would be better off or of hurting yourself in some way: not at all Total score: 0 Depression Screening Interpretation: Negative Depression Screening Done: Yes 61636 - PHQ-9 Billing: Yes Source: Developed by Drs. Jose Alejandro Mosqueda, Braydon Cain and colleagues, with an educational lucy from [employer]. Thrive Questionnaire Date Thrive assessed: 05/07/24 I am a: Patient What is your living situation today?: I have a steady place to live Within the past 12 months, did the food you bought not last and you didn't have the money to get more?: Never true Within the past 12 months, did you worry whether your food would run out before you got money to buy more?: Never true Do you have trouble paying for medicines?: No Do you have trouble getting transportation to medical appointments?: No Do you have trouble paying your heating and electricity bill?: No Do you have trouble taking care of your child, family member or friend?: No Do you have trouble with day-to-day activities such as bathing, preparing meals, shopping, managing finances, etc.?: No Are you currently unemployed and looking for a job?: No Are you interested in more education?: No Please select the resources that you would like help with: None Currently or been in a relationship where the following occur: No concerns reported THRIVE Score: 0 AUDIT C Alcohol Use Questionnaire (AUDIT-C) 1. How often do you have a drink containing alcohol?: Never 3. How often do you have six or more drinks on one occasion?: Never Total Score: 0 VALERI-7 AMB Questionnaire VALERI-7 Date VALERI - 7 assessed: 05/07/24 Feeling nervous, anxious, or on edge: 0 = Not at all Not being able to stop or control worryin = Not at all Worrying too much about different things: 0 = Not at all Trouble relaxin = Not at all Being so restless that it is hard to sit still: 0 = Not at all Becoming easily annoyed or irritable: 0 = Not at all Feeling afraid as if something awful might happen: 0 = Not at all Total VALERI-7 score (0-4 normal; 5-9 mild; 10-14 moderate; 15-21 severe): 0 Source: Developed by Drs. Jose Alejandro Mosqueda, Braydon Cain and colleagues, with an educational lucy from [employer]. VALERI-7 Assessment Billing VALERI-7 Assessment Tool: VALERI-7 Assessment 91965 Review of Systems Const Denies headache(s) Eyes Denies loss of vision ENT Denies vertigo, Denies dizziness, Denies headache(s) and Denies sore throat Card Denies chest pain, Denies leg edema and Denies lightheadedness Resp Denies cough, Denies hemoptysis and Denies wheezing GI Denies abdominal pain, Denies melena, Denies constipation, Denies diarrhea and Denies vomiting Denies urinary frequency, Denies dysuria and Denies urinary urgency Musc Denies arthralgias, Denies joint swelling, Denies numbness and Denies tingling Neuro Denies Abnormal speech present, Denies behavioral changes, Denies vertigo, Denies dizziness, Denies headache(s), Denies loss of vision, Denies memory loss, Denies numbness and Denies tingling Psych Denies anxiety, Denies behavioral changes, Denies depression, Denies memory loss and Denies panic attacks Alcon/Lymph Denies easy bleeding and Denies easy bruising Aller/Immun Denies wheezing Physical exam (Primary Care) Vital Signs: Last Vital Signs Temp 98.0 F 05/07/24 12:54 Pulse 102 H 05/07/24 12:54 BP 90/68 05/07/24 12:54 Pulse Ox 94 05/07/24 12:54 Oxygen Delivery Method Room Air 05/07/24 12:54 BMI result Body Mass Index 35.4 BMI Assessment/Plan discussion: High BMI High, discussed plan: lifestyle, weight reduction, dietary and physical activity Tobacco/Smoking Status: Tobacco use Status Tobacco use date assessed 05/07/24 05/07/24 13:09 Patient Tobacco Use Status Former Tobacco user 05/07/24 12:54 Tobacco use type Cigarette 05/07/24 12:54 e-Cigarette/Vaping Use Never Used 05/07/24 12:54 PHQ-9: PHQ-9 Score PHQ-9: Total score 0 05/07/24 13:09 Depression Screening Interpretation: Negative Thrive Assessment: Date of Thrive Assessment Date Thrive assessed 05/07/24 05/07/24 13:09 Currently or been in a relationship where the following occur: No concerns reported Const General: healthy appearing, no acute distress, alert and awake Nutritional Appearance: well nourished Orientation/consciousness: oriented to person, oriented to place and oriented to time HENMT Ears: TM's normal bilaterally General nose exam: Normal nasal mucous membranes and turbinates present Eyes Conjunctivae: conjunctivae normal Sclerae: sclerae normal Pupils: Equal, round and reactive pupils present Neck Neck: Yes no lymphadenopathy and Yes no JVD Thyroid: Thyroid normal Carotids: no bruits Resp Effort & Inspection: normal respiratory effort and not tachypneic Auscultation: no crackles, no rales, no rhonchi and no wheezes Cardio Rate: regular rate Rhythm: regular rhythm Heart sounds: no murmurs and normal S1 and S2 GI Palpation (GI): Soft to palpation, nontender, no hepatomegaly and no splenomegaly Auscultation: normal bowel sounds Skin General skin exam: no rashes or lesions noted and dry skin Neuro General: oriented to person, oriented to place and oriented to time Cranial nerves: Yes Equal, round and reactive pupils present Speech: No Abnormal speech present Gait exam (Neuro): Normal gait present Motor exam (neuro): no tremor noted Extrem Right upper extremity: full ROM Left upper extremity: full ROM Right lower extremity: full ROM; no edema Left lower extremity: full ROM; no edema Psych Mental Status: mental status grossly normal Speech and movement: Normal speech and movement present Affect: normal affect Attitude: cooperative Thought process: Normal thought process present Immunizations pneumoc 20-james conj-dip cr(PF) 0.5 mL IM syringe Performing Provider: Arron Oliveros PA-C [facility] Administered by: NANCY Delgado on 05/07/24 13:31 Dose Route Admin Location Dispensed Lot Number Expiration Date [facility] [place] [employer] 0.5 mL IM Left Deltoid 0.5 mL [id number] 06/20/25 [employer] VIS Given Date VIS Provided VIS Publication Date 05/07/24 Single Vaccine 21 Eligibility Eligibility Date Funding Source Not [facility] Eligible 05/07/24 Private Coding Level of Care Code Est Pt Level 4 (81521) Diagnoses Class 2 obesity E66.812 ART (obstructive sleep apnea) G47.33 Additional Codes VALERI-7 Assessment Billing - VALERI-7 Assessment Tool: VALERI-7 Assessment 48073 ([id number]) PHQ-9 - 55144 - PHQ-9 Billing: Yes ([id number]) Assessment & Plan Assessment & Plan (1) Class 2 obesity: Code(s): E66.812 - Obesity, class 2 Category: Medical Plan: Patient continues on GLP 1- Zepbound in his lost significant amount of weight. She has lost more than 5% of her total body weight. She feels great has more energy, less depression and more self-confidence. She has established a better relationship with food and portion control. She has been much more physically active. Her mid back pain has been better. She believes her obstructive sleep apnea has improved.. Will continue current Zepbound weekly injections and she will continue follow-up here in the office (2) ART (obstructive sleep apnea): Code(s): G47.33 - Obstructive sleep apnea (adult) (pediatric) Category: Medical Plan: Improvement in symptoms noted with therapy; monitoring of CPAP machine efficacy suggested. Engage in regular evaluations if symptoms persist. Orders: Orders Comprehensive [place]. Panel Fast Today R73.01 - Impaired fasting glucose Lipid Panel Today E78.1 - Pure hyperglyceridemia Complete Blood Count no Diff Today E78.1 - Pure hyperglyceridemia Pneumococcal 20 Immunization Today E78.1 - Pure hyperglyceridemia, Z23 - Encounter for immunization Medications: New pneumoc 20-james conj-dip cr(PF) 0.5 mL IM ONCE 0.5 mL 0RF E78.1 - Pure hyperglyceridemia, Z23 - Encounter for immunization Refilled tirzepatide (weight loss) (Zepbound) 10 mg (0.5 mL) subcut QWEEK 4 weeks 2 mL 0RF E66.9 - Obesity, unspecified, E78.1 - Pure hyperglyceridemia, G47.33 - Obstructive sleep apnea (adult) (pediatric)
[2024-05-07 12:54] VITALS: BP 90/68; PULSE 102; TEMP 36.7; O2SAT 94; BMI 35.4
== END 2024-05-07 13:47 | disposition home or self-care (01) ==
LOC: HO.HMCH 12:51
PROVIDERS: PCP Physician Assistant; Visit Provider Physician Assistant
DX: E78.1 Pure hyperglyceridemia (principal); E66.812 Obesity, class 2; Z68.35 Body mass index [BMI] 35.0-35.9, adult; G47.33 Obstructive sleep apnea (adult) (pediatric); Z23 Encounter for immunization

== ENCOUNTER → 2024-05-07 12:51 | Outpatient (BNVA) | payer OTHER, SELFPAY | PROVIDERS: PCP Physician Assistant; Visit Provider Physician Assistant | DX: Z23 Encounter for immunization (principal); G47.33 Obstructive sleep apnea (adult) (pediatric); E66.812 Obesity, class 2; Z68.35 Body mass index [BMI] 35.0-35.9, adult; Z71.3 Dietary counseling and surveillance | CPT/HCPCS: 90471; 90677; 96127; 99212 ==

== ENCOUNTER 2024-10-10 10:50 | Outpatient (AMB) | payer OTHER, SELFPAY ==
--- NOTE | 2024-10-10 11:02 | A.OFFPC_ITS ---
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 Accompanied by: Self / Same As Patient Allergies ibuprofen (From MOTRIN) Allergy (Unknown, Verified 10/10/24 11:08) UPSET STOMACH, Nausea Medication List - Last Reconciled 10/10/24 by Arron Oliveros PA-C albuterol sulfate 90 mcg/actuation 2 puffs PO Q4-6H PRN alprazolam 0.5 mg PO BID 7 days atomoxetine 60 mg PO QAM atorvastatin 20 mg PO DAILY baclofen 10 mg PO BEDTIME gabapentin 800 mg PO TID 30 days lamotrigine 200 mg PO DAILY miscellaneous medical supply 1 ea miscellaneous DAILY 99 days omeprazole 20 mg PO DAILY sertraline 100 mg PO DAILY tirzepatide 7.5 mg (0.5 mL) subcut QWEEK 4 weeks Held on 09/03/24. Instructions: Dose Change tirzepatide (weight loss) (Zepbound) 2.5 mg (0.5 mL) subcut QWEEK 4 weeks Held on 06/10/24. Instructions: Doctor's Order tirzepatide (weight loss) (Zepbound) 15 mg (0.5 mL) subcut QWEEK tirzepatide (weight loss) (Zepbound) 5 mg (0.5 mL) subcut QWEEK 4 weeks Held on 06/10/24. Instructions: Doctor's Order tirzepatide (weight loss) (Zepbound) 10 mg (0.5 mL) subcut QWEEK 4 weeks Held on 09/03/24. Instructions: Dose Change tirzepatide (weight loss) (Zepbound) 12.5 mg (0.5 mL) subcut QWEEK 4 weeks Held on 09/03/24. Instructions: Dose Change tramadol 50 mg PO BID PRN 30 days Tobacco use date assessed: 10/10/24 Dental Screening Dental Screen Date: 10/10/24 Did you have a dental visit in the last 12 months?: No Did you have a dental problem in the last 6 months where you did not have access to dental care?: No Was dental information given to patient?: No HPI 4-6 MON FUP/DUE FOR MAMMO HPI Details Patient is a 59 year-old female here today for a follow-up visit. Patient has a past medical history significant for obesity, generalized anxiety disorder, insomnia, moderate to severe scoliosis of thoracic lumbar spine, ART, major depressive disorder. Class 2 Obesity/ ART: Patient continues on Zepbound in his has been able to lose more than 5% of body weight. Her starting BMI was at 41 and today's BMI at 30- initial BMI at 41 She has establish new eating habits and has been much more so physically active. She reports she has now increased self confidence , decreased depression and decreased mid back pain secondary to her scoliotic spine.. Her concern is centered around the effectiveness of the medication in maintain ing her progress and preventing a return to depressive states. In terms of weight loss, the patient has achieved a reduction of approximately 50-60 pounds through the medication. Concerning obstructive sleep apnea, the patient observes an improvement with CPAP therapy, noting a reduction in a specific number on the machine that she does not fully understand. .. Scoliosis: Continues to have limitations due to her scoliotic back. She manages with gabapentin and p.r.n. use of tramadol for pain. .. Generalized anxiety disorder, depression: Has agoraphobic tendencies though has been better since starting GLP 1 and losing weight, has been able to grocery shop lately. ? Patient now followed by a mental health provider whom is prescribing her mental health medications. Now on lamotrigineand and topamax , zoloft.? Still uses alprazolam any very limited p.r.n. basis for anxious symptoms. She feels her mental health is fairly stable now. [facility] Medical History Brain stem lesion Gastric pain Surgical History No pertinent past surgical history Family History Father Diabetes Hypertension Mother No problems noted. Social History Housing: House Alcohol intake: never Patient Tobacco Use Status: Former Tobacco user Tobacco use type: Cigarette e-Cigarette/Vaping Use: Never Used Second Hand Smoke Exposure: No service: No Current occupational status: disabled Cognitive needs: Yes (Pt has a walker at home.) Hearing needs: No Vision needs: Yes Questionnaire PHQ-9 Over the last 2 weeks, how often have you been bothered by any of the following problems? 1. Little interest or pleasure in doing things: not at all 2. Feeling down, depressed, or hopeless: not at all 3. Trouble falling or staying asleep, or sleeping too much: not at all 4. Feeling tired or having little energy: not at all 5. Poor appetite or overeating: not at all 6. Feeling bad about yourself - or that you are a failure or have let yourself or your family down: not at all 7. Trouble concentrating on things, such as reading the newspaper or watching television: not at all 8. Moving or speaking so slowly that other people could have noticed. Or the opposite - being so fidgety or restless that you have been moving around a lot more than usual: not at all 9. Thoughts that you would be better off or of hurting yourself in some way: not at all Total score: 0 Depression Screening Interpretation: Negative Depression Screening Done: Yes 33001 - PHQ-9 Billing: Yes Source: Developed by Drs. Jose Alejandro Mosqueda, Cha Frias, Braydon Ellis and colleagues, with an educational lucy from [employer]. Thrive Questionnaire Date Thrive assessed: 10/10/24 I am a: Patient What is your living situation today?: I have a steady place to live Within the past 12 months, did the food you bought not last and you didn't have the money to get more?: Never true Within the past 12 months, did you worry whether your food would run out before you got money to buy more?: Never true Do you have trouble paying for medicines?: No Do you have trouble getting transportation to medical appointments?: No Do you have trouble paying your heating and electricity bill?: No Do you have trouble taking care of your child, family member or friend?: No Do you have trouble with day-to-day activities such as bathing, preparing meals, shopping, managing finances, etc.?: No Are you currently unemployed and looking for a job?: I choose not to answer this question Are you interested in more education?: No Please select the resources that you would like help with: None Currently or been in a relationship where the following occur: No concerns reported THRIVE Score: 0 AUDIT C Alcohol Use Questionnaire (AUDIT-C) 1. How often do you have a drink containing alcohol?: Never Total Score: 0 VALERI-7 AMB Questionnaire VALERI-7 Date VALERI - 7 assessed: 10/10/24 Feeling nervous, anxious, or on edge: 0 = Not at all Not being able to stop or control worryin = Not at all Worrying too much about different things: 0 = Not at all Trouble relaxin = Not at all Being so restless that it is hard to sit still: 0 = Not at all Becoming easily annoyed or irritable: 0 = Not at all Feeling afraid as if something awful might happen: 0 = Not at all Total VALERI-7 score (0-4 normal; 5-9 mild; 10-14 moderate; 15-21 severe): 0 Source: Developed by Drs. Jose Alejandro Mosqueda, Cha Frias, Braydon Ellis and colleagues, with an educational lucy from [employer]. VALERI-7 Assessment Billing VALERI-7 Assessment Tool: VALERI-7 Assessment 64478 Review of Systems Const Denies headache(s) Eyes Denies loss of vision ENT Denies vertigo, Denies dizziness, Denies headache(s) and Denies sore throat Card Denies chest pain, Denies leg edema and Denies lightheadedness Resp Denies cough, Denies hemoptysis and Denies wheezing GI Denies abdominal pain, Denies melena, Denies constipation, Denies diarrhea and Denies vomiting Denies urinary frequency, Denies dysuria and Denies urinary urgency Musc Denies arthralgias, Denies joint swelling, Denies numbness and Denies tingling Neuro Denies Abnormal speech present, Denies behavioral changes, Denies vertigo, Denies dizziness, Denies headache(s), Denies loss of vision, Denies memory loss, Denies numbness and Denies tingling Psych Denies anxiety, Denies behavioral changes, Denies depression, Denies memory loss and Denies panic attacks Alcon/Lymph Denies easy bleeding and Denies easy bruising Aller/Immun Denies wheezing Physical exam (Primary Care) Vital Signs: Last Vital Signs Pulse 84 10/10/24 11:03 BP 98/64 10/10/24 11:03 Pulse Ox 96 10/10/24 11:03 Oxygen Delivery Method Room Air 10/10/24 11:03 BMI result Body Mass Index 30.7 BMI Assessment/Plan discussion: High BMI High, discussed plan: lifestyle, weight reduction, dietary and physical activity Tobacco/Smoking Status: Tobacco use Status Tobacco use date assessed 10/10/24 10/10/24 11:05 Patient Tobacco Use Status Former Tobacco user 10/10/24 11:05 Tobacco use type Cigarette 10/10/24 11:05 e-Cigarette/Vaping Use Never Used 10/10/24 11:05 PHQ-9: PHQ-9 Score PHQ-9: Total score 0 10/10/24 11:30 Depression Screening Interpretation: Negative Thrive Assessment: Date of Thrive Assessment Date Thrive assessed 10/10/24 10/10/24 11:05 Currently or been in a relationship where the following occur: No concerns reported Const General: healthy appearing, no acute distress, alert and awake Nutritional Appearance: well nourished Orientation/consciousness: oriented to person, oriented to place and oriented to time HENMT Ears: TM's normal bilaterally General nose exam: Normal nasal mucous membranes and turbinates present Eyes Conjunctivae: conjunctivae normal Sclerae: sclerae normal Pupils: Equal, round and reactive pupils present Neck Neck: Yes no lymphadenopathy and Yes no JVD Thyroid: Thyroid normal Carotids: no bruits Resp Effort & Inspection: normal respiratory effort and not tachypneic Auscultation: no crackles, no rales, no rhonchi and no wheezes Cardio Rate: regular rate Rhythm: regular rhythm Heart sounds: no murmurs and normal S1 and S2 GI Palpation (GI): Soft to palpation, nontender, no hepatomegaly and no splenomegaly Auscultation: normal bowel sounds Back/Spine/Pelvis Other: SCOLIOTIC BACK DEFORMITY NOTED Skin General skin exam: no rashes or lesions noted and dry skin Neuro General: oriented to person, oriented to place and oriented to time Cranial nerves: Yes Equal, round and reactive pupils present Speech: No Abnormal speech present Gait exam (Neuro): Normal gait present Motor exam (neuro): no tremor noted Extrem Right upper extremity: full ROM Left upper extremity: full ROM Right lower extremity: full ROM; no edema Left lower extremity: full ROM; no edema Psych Mental Status: mental status grossly normal Speech and movement: Normal speech and movement present Affect: normal affect Attitude: cooperative Thought process: Normal thought process present Coding Level of Care Code Est Pt Level 4 (63867) Diagnoses Class 2 obesity E66.812 ART (obstructive sleep apnea) G47.33 Moderate episode of recurrent major depressive disorder F33.1 Major depression episode severity: moderate VALERI (generalized anxiety disorder) F41.1 Pure hypertriglyceridemia E78.1 Hyperlipidemia type: pure hypertriglyceridemia Other idiopathic scoliosis, thoracic region M41.24 Idiopathic scoliosis type: other Scoliosis type: idiopathic Spinal region: thoracic Additional Codes VALERI-7 Assessment Billing - VALERI-7 Assessment Tool: VALERI-7 Assessment 07857 ([id number]) PHQ-9 - 15484 - PHQ-9 Billing: Yes ([id number]) Assessment & Plan Assessment & Plan (1) Class 2 obesity: Code(s): E66.812 - Obesity, class 2 Category: Medical Plan: Today's BMI at 30, upon initiation a GLP 1 her BMI was 41. Patient continues on GLP 1- Zepbound in his lost significant amount of weight. She has lost more than 5% of her total body weight. She feels great has more energy, less depression and more self-confidence. She has established a better relationship with food and portion control. She has been much more physically active. Her mid back pain has been better. She believes her obstructive sleep apnea has improved.. Will continue current Zepbound weekly injections and she will continue follow-up here in the office (2) ART (obstructive sleep apnea): Code(s): G47.33 - Obstructive sleep apnea (adult) (pediatric) Category: Medical Plan: Improvement in symptoms noted with therapy; monitoring of CPAP machine efficacy suggested. Engage in regular evaluations if symptoms persist. (3) MDD (major depressive disorder), recurrent episode: Code(s): F33.9 - Major depressive disorder, recurrent, unspecified Category: Medical Qualifiers: Major depression episode severity: moderate Qualified Code(s): F33.1 - Major depressive disorder, recurrent, moderate Plan: Patient's PHQ-9 score 0, she does follow a mental health therapist in his takes mental health medications whom are managed by her psychiatrist (4) VALERI (generalized anxiety disorder): Code(s): F41.1 - Generalized anxiety disorder Category: Medical Plan: Patient's VALERI-7 0, she reports better control over anxiety and agoraphobia since losing weight on GLP 1. (5) HLD (hyperlipidemia): Code(s): E78.5 - Hyperlipidemia, unspecified Category: Medical Qualifiers: Hyperlipidemia type: pure hypertriglyceridemia Qualified Code(s): E78.1 - Pure hyperglyceridemia Plan: Patient continues on atorvastatin, unfortunately has not gotten labs done in quite some time and promises to do so before upcoming annual physical. Goal LDL is to be below 130 (6) Scoliosis: Code(s): M41.9 - Scoliosis, unspecified Category: Medical Qualifiers: Idiopathic scoliosis type: other Scoliosis type: idiopathic Spinal region: thoracic Qualified Code(s): M41.24 - Other idiopathic scoliosis, thoracic region Plan: As per HPI patient does have severe scoliosis that limits her ability to be more physically active though she continues to walk and garden. She has been managing with gabapentin and p.r.n. use of tramadol for pain. Orders: Orders MM screening mammo BI Today Z12.31 - Encounter for screening mammogram for malignant neoplasm of breast Referrals Cologuard Test Z12.11 - Encounter for screening for malignant neoplasm of colon Medications: Changed From tramadol 50 mg PO BID 30 days PRN 60 tabs 3RF pain M41.24 - Other idiopathic scoliosis, thoracic region To tramadol 50 mg PO DAILY PRN 30 tabs 1RF pain 30 days M41.24 - Other idiopathic scoliosis, thoracic region From tirzepatide (weight loss) (Zepbound) 15 mg (0.5 mL) subcut QWEEK 2 mL 0RF E66.812 - Obesity, class 2, E78.1 - Pure hyperglyceridemia, G47.33 - Obstructive sleep apnea (adult) (pediatric) To tirzepatide (weight loss) (Zepbound) 15 mg (0.5 mL) subcut QWEEK 2 mL 4RF 4 weeks E66.812 - Obesity, class 2, E78.1 - Pure hyperglyceridemia, G47.33 - Obstructive sleep apnea (adult) (pediatric)
[2024-10-10 11:03] VITALS: BP 98/64; PULSE 84; O2SAT 96; BMI 30.7
== END 2024-10-10 11:29 | disposition home or self-care (01) ==
LOC: HO.HMCH 10:51
PROVIDERS: PCP Physician Assistant; Visit Provider Physician Assistant
DX: G47.33 Obstructive sleep apnea (adult) (pediatric) (principal); F33.1 Major depressive disorder, recurrent, moderate; E66.812 Obesity, class 2; Z68.30 Body mass index [BMI] 30.0-30.9, adult; F41.1 Generalized anxiety disorder; E78.1 Pure hyperglyceridemia; M41.24 Other idiopathic scoliosis, thoracic region

== ENCOUNTER → 2024-10-10 10:50 | Outpatient (BNVA) | payer OTHER, SELFPAY | PROVIDERS: PCP Physician Assistant; Visit Provider Physician Assistant | DX: F41.1 Generalized anxiety disorder (principal); G47.00 Insomnia, unspecified; M41.9 Scoliosis, unspecified; G47.33 Obstructive sleep apnea (adult) (pediatric); F33.1 Major depressive disorder, recurrent, moderate; E78.1 Pure hyperglyceridemia; M41.24 Other idiopathic scoliosis, thoracic region; E66.812 Obesity, class 2; Z68.30 Body mass index [BMI] 30.0-30.9, adult; Z99.89 Dependence on other enabling machines and devices | CPT/HCPCS: 96127; 99212 ==

== ENCOUNTER 2025-02-10 14:39 | Outpatient (AMB) | payer OTHER, SELFPAY ==
--- NOTE | 2025-02-10 14:40 | A.OFFPC_ITS ---
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 Accompanied by: Self / Same As Patient Allergies ibuprofen (From MOTRIN) Allergy (Unknown, Verified 02/10/25 15:21) UPSET STOMACH, Nausea Medication List - Last Reconciled 02/10/25 by Arron Oliveros PA-C albuterol sulfate 90 mcg/actuation 2 puffs PO Q4-6H PRN alprazolam 0.5 mg PO BID 7 days atomoxetine 60 mg PO QAM atorvastatin 20 mg PO DAILY baclofen 10 mg PO BEDTIME gabapentin 800 mg PO TID 30 days lamotrigine 200 mg PO DAILY miscellaneous medical supply 1 ea miscellaneous DAILY 99 days omeprazole 20 mg PO DAILY sertraline 200 mg PO DAILY tirzepatide 7.5 mg (0.5 mL) subcut QWEEK 4 weeks Held on 09/03/24. Instructions: Dose Change tirzepatide (weight loss) (Zepbound) 2.5 mg (0.5 mL) subcut QWEEK 4 weeks Held on 06/10/24. Instructions: Doctor's Order tirzepatide (weight loss) (Zepbound) 15 mg (0.5 mL) subcut QWEEK 4 weeks tirzepatide (weight loss) (Zepbound) 5 mg (0.5 mL) subcut QWEEK 4 weeks Held on 06/10/24. Instructions: Doctor's Order tirzepatide (weight loss) (Zepbound) 10 mg (0.5 mL) subcut QWEEK 4 weeks Held on 09/03/24. Instructions: Dose Change tirzepatide (weight loss) (Zepbound) 12.5 mg (0.5 mL) subcut QWEEK 4 weeks Held on 09/03/24. Instructions: Dose Change tramadol 50 mg PO BID PRN 30 days trazodone 150 mg PO BEDTIME PRN Tobacco use date assessed: 10/10/24 Dental Screening Dental Screen Date: 10/10/24 HPI stomach issues/headache HPI Details Patient is a 59-year-old female being evaluated today via telephone only. Patient has been seeing her psychiatrist and was started on Wellbutrin recently her depression and anxiety. She had side effects of nausea and vomiting and stopped Wellbutrin. She is now feeling much better. She will discuss her side effects with her psychiatrist. She is interested in reducing doses of her mental health medications and perhaps getting off of lamotrigine. Advised her to speak with her psychiatrist about managing her mental health medication Otherwise has lost significant amount of weight on a GLP 1 feels much better with her back pain and her mental health. She will get fasting labs before her upcoming annual physical in March of 2025 [facility] Medical History Brain stem lesion Gastric pain Surgical History No pertinent past surgical history Family History Father Diabetes Hypertension Mother No problems noted. Social History Housing: House Alcohol intake: never Patient Tobacco Use Status: Former Tobacco user Tobacco use type: Cigarette e-Cigarette/Vaping Use: Never Used Second Hand Smoke Exposure: No service: No Current occupational status: disabled Cognitive needs: Yes (Pt has a walker at home.) Hearing needs: No Vision needs: Yes Questionnaire Thrive Questionnaire Date Thrive assessed: 10/10/24 VALERI-7 AMB Questionnaire VALERI-7 Date VALERI - 7 assessed: 10/10/24 Source: Developed by Drs. Jose Alejandro Mosqueda, Cha Frias, Braydon Ellis and colleagues, with an educational lucy from [employer] Review of Systems Const Denies headache(s) Eyes Denies loss of vision ENT Denies vertigo, Denies dizziness, Denies headache(s) and Denies sore throat Card Denies chest pain, Denies leg edema and Denies lightheadedness Resp Denies cough, Denies hemoptysis and Denies wheezing GI Denies abdominal pain, Denies melena, Denies constipation, Denies diarrhea and Denies vomiting Denies urinary frequency, Denies dysuria and Denies urinary urgency Musc Denies arthralgias, Denies joint swelling, Denies numbness and Denies tingling Neuro Denies behavioral changes, Denies vertigo, Denies dizziness, Denies headache(s), Denies loss of vision, Denies memory loss, Denies numbness and Denies tingling Psych Denies anxiety, Denies behavioral changes, Denies depression, Denies memory loss and Denies panic attacks Alcon/Lymph Denies easy bleeding and Denies easy bruising Aller/Immun Denies wheezing Physical exam (Primary Care) Tobacco/Smoking Status: Tobacco use Status Tobacco use date assessed 10/10/24 02/10/25 14:46 Patient Tobacco Use Status Former Tobacco user 02/10/25 14:46 Tobacco use type Cigarette 02/10/25 14:46 e-Cigarette/Vaping Use Never Used 02/10/25 14:46 Thrive Assessment: Date of Thrive Assessment Date Thrive assessed 10/10/24 02/10/25 14:46 Telehealth Telehealth Telehealth Platform: Telephone Location of provider rendering services: practice address Location of patient: address on file Patient Identification confirmed using: Name, : Yes Telehealth method: voice only Patient verbally consented to treatment: Yes Patient verbally consented to billing insurance company: Yes Patient informed of any privacy concerns related to visit: Yes Minutes spent on Phone/Video with Pt.: 11 Coding Level of Care Code Tele Est Pt Level 4 (35503) Diagnoses Moderate episode of recurrent major depressive disorder F33.1 Major depression episode severity: moderate Other idiopathic scoliosis, thoracic region M41.24 Scoliosis type: idiopathic Idiopathic scoliosis type: other Spinal region: thoracic Assessment & Plan Assessment & Plan (1) MDD (major depressive disorder), recurrent episode: Code(s): F33.9 - Major depressive disorder, recurrent, unspecified Category: Medical Qualifiers: Major depression episode severity: moderate Qualified Code(s): F33.1 - Major depressive disorder, recurrent, moderate Plan: As per HPI (2) Scoliosis: Code(s): M41.9 - Scoliosis, unspecified Category: Medical Qualifiers: Scoliosis type: idiopathic Idiopathic scoliosis type: other Spinal region: thoracic Qualified Code(s): M41.24 - Other idiopathic scoliosis, thoracic region Plan: Patient has a history severe thoracic lumbar scoliosis. Has done a lot of physical therapy in the past.. Patient continues with gabapentin and baclofen for the treatment and for low back pain. Has been better since she has lost weight. She reports she would like to discontinue baclofen in an effort to reduce medications. She will continue gabapentin for pain management.
== END 2025-02-10 15:27 | disposition home or self-care (01) ==
LOC: HO.HMCH 14:39
PROVIDERS: PCP Physician Assistant; Visit Provider Physician Assistant
DX: F33.1 Major depressive disorder, recurrent, moderate (principal); M41.24 Other idiopathic scoliosis, thoracic region